=== PATIENT | female | born 1930 | race Caucasian/White ===

== ENCOUNTER 2017-03-09 15:59 | Inpatient (IN) | payer MEDICARE, OTHER ==
--- NOTE | ~2017-03-09 | CR72 ---
[facility] A Service of [facility] & [facility] RADIOLOGY TEXT RESULTS PATIENT: WILI CABRERA LOCATION: [facility] [id number] : 30 UNIT #: [id number] AGE: [address]: Brenton Martinez MD SEX: F ORDER DR: [id number] [facility] [address] [place], [place] [address] [id number] MR#: [id number] Acc #: [id number] NAME: WILI CABRERA : 1930 SEX: F STUDY DATE/TIME: 03/09/2017 18:28 UNIT: [facility] ROOM: STUDY DESCRIPTION: CR Chest Single View Portable Attending Physician: Filippo Oh M.D. Referring Physician: Jv Martin M.D. Ordering Physician: Ed Alexi Yañez M.D. Primary Care Physician: Manny Gloria M.D. MEDICAL IMAGING REPORT This report is preliminary unless electronic signature is present EXAM Portable chest. HISTORY Shortness of breath and cough for the past week. TECHNIQUE Single view of the chest was obtained and compared with 06/30/2015. FINDINGS The heart and mediastinum are stable with a tortuous aorta noted. The lungs are clear with no new infiltrates seen since the previous exam. Vascular markings are normal. IMPRESSION Postop open-heart with a tortuous aorta. No active disease. Dictated by... José Miguel Lorenzo M.D. THIS IS AN ELECTRONICALLY VERIFIED REPORT José Miguel Lorenzo M.D. at 03/09/2017 10:20 PM STEPHAN/bernarda TD: 03/09/2017 19:08 JOB #: [id number] MEDICAL IMAGING REPORT Page 1 of 1 COPY
--- NOTE | ~2017-03-09 | DS ---
Unit #: [id number] #: [id number] Patient: WILI CABRERA [id number] [facility]. [address] [place], [place] [address] [id number] I MR#: [id number] NAME: WILI CABRERA. ROOM: 567 Age: 86 Sex: F Admission Date: 03/11/2017 : 1930 Discharge Date: 03/16/2017 Attending Physician: Brenton Martinez M.D. Primary Care Physician: Manny Gloria M.D. DISCHARGE SUMMARY DISCHARGE DIAGNOSES 1. Diastolic congestive heart failure. Left ventricular ejection fraction 40%-45%, per 2-echo on 03/10/2017. Also shows moderately dilated left atrium, bioprosthetic aortic valve with a peak gradient of 15 mmHg and a mean gradient of 7 mmHg, mild MR, mild to moderate TR, RVSP 31 mmHg. No evidence of pericardial effusion. 2. Status post aortic valve replacement for aortic regurgitation in 2006. 3. Hyperlipidemia. 4. Postural hypotension on a background of hypertension. DISCHARGE MEDICATIONS 1. Gabapentin 300 mg p.o. t.i.d. 2. Effexor 75 mg p.o. daily. 3. Simvastatin 40 mg p.o. daily. 4. Fish oil 1000 mg soft gel p.o. daily. 5. Carboxymethylcellulose TheraTears two drops both eyes b.i.d. 6. Multivitamin 1 p.o. daily. 7. Melatonin 3 mg p.o. at nighttime p.r.n. sleep. 8. Aspirin 81 mg daily. 9. Lansoprazole 30 mg p.o. daily. 10. Potassium chloride 20 mEq p.o. daily. 11. Vitamin D 1000 units p.o. daily. Please note the patient's atenolol 25 mg p.o. at nighttime, HCTZ, Plendil and Diovan have been discontinued secondary to postural hypotension. HOSPITAL COURSE This is an 86-year-old female who is well known to Dr. Leslie with a history of aortic insufficiency, status post tissue aortic valve replacement in 2006. She had undergone cardiac catheterization in 2005, which showed nonobstructive coronary artery disease. The patient presented to the emergency room with complaints of shortness of breath both at rest as well as on exertion. She also had substernal burning chest pain that was occurring with activity, however, had no radiation to the neck, arm or jaw. She denied any PND, orthopnea or leg edema. In the emergency room her BNP was found to be 822. EKG showed no acute ischemic changes. Troponins have been negative. The patient was treated for acute onset diastolic congestive heart failure. Two-dimensional echocardiogram was performed and she was also given IV diuretics. The patient was taken for cardiac catheterization per Dr. Martinez on 03/13/2017, which showed normal coronary arteries. Two-dimensional echocardiogram was performed during this hospitalization, which showed left ventricular ejection fraction of 40%-45%, mild concentric LVH, moderate dilated left atrium, Unit #: [id number] #: [id number] Patient: DEBORAHWILI J bioprosthetic aortic valve with a peak gradient of 15 mmHg and a mean gradient of 7 mmHg, mild mitral regurgitation, mild to moderate tricuspid regurgitation, RVSP 31 mmHg. There was no evidence of any pericardial effusion. During the hospitalization the patient was found to have some postural hypotension. Therefore, her medications were adjusted. She was continued on an 1800 mL fluid restriction as well as a low-sodium diet. Her cardiac rhythm has remained stable throughout the hospitalization. She has had some episodes of bradycardia, asymptomatic, but no high grade AV block or junctional rhythm. No syncopal episodes. The patient denies any complaints of chest pain or shortness of breath. At present her cardiac rhythm is stable. She appears euvolemic. There is no evidence of congestive heart failure on examination. It is felt she is stable for discharge today. CONSULTANTS None. DIAGNOSTIC DATA LABORATORY: Glucose 99, creatinine 1.3, potassium 4.1, last hemoglobin 14.0, hematocrit 41.9, white blood cell count 8.3, platelet count 188. CARDIOVASCULAR: On telemetry the patient is bradycardic in the upper 40s to low 50s. Her atenolol has been discontinued. PHYSICAL EXAMINATION VITALS: Temperature 98.7, respiratory rate 18, pulse 50, blood pressure 124/62, BMI 28. GENERAL: This is a pleasant 86-year-old elderly white female in no acute distress. NECK: Trachea midline. No thyromegaly or lymphadenopathy. No jugular venous distension. HEART: S1 and S2. Heart sounds are normal. Normal valve sounds. No rub or click. Regular rate and rhythm. CHEST: Clear to auscultation. No rales, rhonchi or wheezes. ABDOMEN: Soft, nontender and nondistended with bowel sounds present. EXTREMITIES: No leg edema. Pulses are palpable. NEUROLOGIC: She is awake, alert and oriented. She follows commands. Moves all extremities appropriately. DISCHARGE CONDITION The patient has been seen and evaluated by Dr. Saez today. She is felt stable for discharge home today. She does have some bradycardia on telemetry, but no evidence of high grade AV block or junctional rhythm. She is asymptomatic with a heart rate running in the upper 40s to low 50s. Her atenolol has been discontinued. She has been ambulating without any symptoms. She denies any complaints of chest pain or shortness of breath. She appears euvolemic. Her cardiac catheterization showed normal coronaries with a clinically normal functioning aortic valve. The patient did have some evidence of postural hypotension during this admission, which has since resolved and her medications have been decreased and adjusted. At present the patient feels fine. She does not complain of any dizziness or lightheadedness and is ambulating again without difficulty. FOLLOWUP Unit #: [id number] #: [id number] Patient: WILI CABREAR 1. She will need to follow up with her primary care physician in one to two weeks. 2. I will write for home health to see the patient at discharge for physical therapy as she does need some assistance with ambulation with a rolling walker. 3. The patient should follow up with her normal immigration lawyer, Dr. Leslie, upon discharge. Dictated by... Chela DennisonPSilvioRSparkle for Valerie Sommer/gz TD: 03/18/2017 09:48 JOB #: [id number] DISCHARGE SUMMARY Page 1 of 1 X Aleksandra Gracia APRN X DISCHARGE SUMMARY
--- NOTE | ~2017-03-09 | EKG ---
PATIENT: WIIL CABRERA UNIT #: [id number] Ventricular Rate: 42 BPM Atrial Rate: 42 BPM P-R Interval: 148 ms QRS Duration: 90 ms Q-T Interval: 474 ms QTC Calculation(Bezet): 395 ms P [place]: 18 degrees Calculated R [place]: -13 degrees Calculated T Addison: 54 degrees Diagnosis Line: Marked sinus bradycardia Diagnosis Line: Normal ECG Diagnosis Line: When compared with ECG of 09-MAR-2017 14:02, Diagnosis Line: Premature ventricular complexes are no longer Diagnosis Line: Present Diagnosis Line: Premature atrial complexes are no longer Present Diagnosis Line: Confirmed by TESSIE SCHMITT MD ([id number]) on 03/12/2017 Diagnosis Line: 10:48:25 PM INTERPRETING MD: KESHIA PASTOR
--- NOTE | ~2017-03-09 | HP ---
Unit #: [id number] #: [id number] Patient: WILI CABRERA [id number] [address] [place], [place] [address] [id number] I MR#: [id number] NAME: WILI CABRERA. ROOM: 201 Age: 86 Sex: F Admission Date: 03/09/2017 : 1930 Attending Physician: Brenton Martinez M.D. Primary Care Physician: Manny Gloria M.D. HISTORY AND PHYSICAL HISTORY OF PRESENT ILLNESS This is an 86-year-old white female who is known to Dr. Leslie that has a history of aortic insufficiency where she underwent tissue aortic valve replacement in November 2006. In 2005 she had a cardiac catheterization per their previous records that showed mild nonobstructive coronary artery disease. She is known to have hypertension and hyperlipidemia. The patient presents to the emergency room with a complaint of shortness of breath. She states she got a cortisone injection on Monday. On Monday she began to have shortness of breath at rest as well as on exertion. She has occasional substernal burning chest pain that is nonradiating to the neck, arm or jaw, that mostly occurs with activity. She denied paroxysmal nocturnal dyspnea, orthopnea or leg edema. She did notice an increase in her abdominal girth. She called her primary care physician and was advised to come to the emergency room for evaluation. In the emergency room BNP 822. Her EKG showed no acute ischemic changes. Troponin negative. PAST MEDICAL HISTORY 1. Tissue aortic valve replacement 12/12/2006. 2. Cardiac catheterization in 2005 according to previous dictations from [facility] with mild nonobstructive coronary artery disease. No other details available. 3. Two-D echocardiogram 03/05/2011 shows an ejection fraction equal to or greater than 55% with mild tricuspid regurgitation. Prosthetic aortic valve not well visualized with normal gradients and mild tricuspid regurgitation. 4. Hypertension. 5. Hyperlipidemia. 6. Gastroesophageal reflux disease. 7. Degenerative joint disease. 8. Lifelong nonsmoker. PAST SURGICAL HISTORY 1. Cholecystectomy. 2. Hysterectomy. 3. Right rotator cuff repair. 4. section x3. 5. Aortic valve replacement. 6. Cataract extraction. SOCIAL HISTORY Unit #: [id number] #: [id number] Patient: WILI CABRERA The patient lives at home alone. She has never smoked. She denies illicit drug and alcohol use. FAMILY HISTORY Negative for coronary artery disease. ALLERGIES Hydrocodone. HOME MEDICATIONS 1. Neurontin 300 mg t.i.d. 2. Lansoprazole 30 mg daily. 3. Plendil 5 mg daily. 4. Diovan 160 mg daily. 5. Aspirin 81 mg daily. 6. Vitamin D3 1000 units daily. 7. Calcium 600 mg daily. 8. Multivitamin one tablet daily. 9. Fish oil 1000 mg daily. 10. TheraTears two drops both eyes b.i.d. 11. Effexor 75 mg daily. 12. Simvastatin 40 mg daily. 13. Atenolol 25 mg q.h.s. 14. Melatonin 3 mg q.h.s. REVIEW OF SYSTEMS CONSTITUTIONAL: Negative for fever or chills. Reports weakness. No weight gain or weight loss. HEENT: No headache, hearing or visual changes or difficulty with swallowing. No dizziness. CARDIOVASCULAR: Has chest discomfort described in the HPI. Has occasional palpitations. No paroxysmal nocturnal dyspnea or orthopnea. Denies syncope or near syncope. RESPIRATORY: Positive for dyspnea at rest, worse on exertion. Has occasional nonproductive cough. No hemoptysis. GASTROINTESTINAL: No abdominal pain, nausea or vomiting. No constipation or melena. Noticed an increase in her abdominal girth. EXTREMITIES: Negative for lower extremity edema. PHYSICAL EXAMINATION VITAL SIGNS: Blood pressure 129/75, heart rate 52, temperature 97.5, BMI is 28. GENERAL: This is a very pleasant, 86-year-old, rzpvs-my-jwltaul, elderly white female who is in no acute distress. NEUROLOGICAL: She is awake, alert and oriented. There are no focal weaknesses NECK: Trachea is midline. No thyromegaly or lymphadenopathy. No jugular venous distention. HEART: S1, S2. Heart sounds are normal with valves sounds normal. No rubs or clicks. Regular rate and rhythm. CHEST: Chest is clear to auscultation without rales, rhonchi or wheezes. ABDOMEN: Soft, nontender, with bowel sounds present. EXTREMITIES: Without leg edema. SKIN: Warm and dry. DIAGNOSTIC STUDIES LABORATORY: Glucose 149, BUN 31, creatinine 1.0, sodium 136, potassium 3.6, magnesium 2.0, BNP 822, cholesterol 255, triglycerides 233, LDL of Unit #: [id number] #: [id number] Patient: WILI CABRERA J 172, HDL 36, TSH 1.39, white count 7.5, hemoglobin 12.9, hematocrit 37.8, platelet count is 151. IMAGING: Chest x-ray shows no active disease. CARDIOVASCULAR: EKG sinus bradycardia with a rate of 57 beats per minute with premature ventricular complexes. There is nonspecific ST-wave abnormality. IMPRESSION 1. Acute new onset probable diastolic heart failure. 2. Status post aortic valve replacement for aortic regurgitation in 2006. 3. Hyperlipidemia, uncontrolled. 4. Rule out coronary artery disease 5. Rule out aortic valve malfunction. 6. Hypertension. PLAN 1. The patient has symptomatically improved with IV furosemide. Will start the patient on daily diuretic. 2. Continue fluid and sodium restriction. 3. Obtain 2D echocardiogram to reevaluate left ventricular systolic function and to evaluate the aortic valve gradient. 4. Recommend the patient undergo left and right cardiac catheterization to evaluate her coronary anatomy and to further evaluate the aortic valve. This has been discussed with the patient including risks and benefits and she is agreeable. 5. Cholesterol, triglycerides and LDL are elevated. Will increase statin to high intensity, high dose statin for control. 6. Start on Lovenox and aspirin. 7. Will also start FREDI inhibitor for afterload reduction. 8. Home dose of hydrochlorothiazide will be discontinues. 9. Cardiac catheterization is scheduled for Monday. Dictated by Omid Navarro A.P.R.N. for Valerie Guo/josh TD: 03/10/2017 18:34 JOB #: [id number] CC: Sebastian Jimenez M.D. HISTORY AND PHYSICAL Page 1 of 1 X Omid Navarro APRN HISTORY AND PHYSICAL
--- NOTE | ~2017-03-09 | EKG ---
PATIENT: WILI CABRERA UNIT #: [id number] Ventricular Rate: 57 BPM Atrial Rate: 57 BPM P-R Interval: 138 ms QRS Duration: 86 ms Q-T Interval: 414 ms QTC Calculation(Bezet): 402 ms P [place]: 61 degrees Calculated T [place]: 60 degrees Diagnosis Line: Sinus bradycardia with occasional Premature Diagnosis Line: ventricular complexes and Premature atrial Diagnosis Line: complexes Diagnosis Line: Nonspecific ST abnormality Diagnosis Line: Abnormal ECG Diagnosis Line: When compared with ECG of 03-AUG-2014 10:48, Diagnosis Line: Premature ventricular complexes are now Present Diagnosis Line: Premature atrial complexes are now Present Diagnosis Line: Nonspecific T wave abnormality no longer evident Diagnosis Line: in Anterior leads Diagnosis Line: QT has shortened Diagnosis Line: Confirmed by ADEOLA BECK MD ([id number]) on Diagnosis Line: 03/10/2017 11:06:52 PM INTERPRETING MD: BRYN
[2017-03-09 14:35] LABS: BASOPHIL% 0.2 % (0-2.5); HEMATOCRIT 37.8 % (35.0-45.0); HEMOGLOBIN 12.9 gm/dL (12.0-16.0); LYMPHOCYTE# 1.1 X10e3 (1.0-3.5); LYMPHOCYTE% 14.6 % (17.0-45.0); MEAN CELL VOLUME 92.9 FL (83-96); MEAN CORPUSCULAR HEMOGLOBIN 31.8 PG (28-34); MEAN CORPUSCULAR HGB CONC 34.2 g/dL (30-36); MEAN PLATELET VOLUME 8.5 FL (6.5-11.5); MONOCYTE# 0.6 X10e3 (0-1.0); MONOCYTE% 7.8 % (3.0-12.0); NEUTROPHIL# 5.8 X10e3 (1.5-7.1); NEUTROPHIL% 77.4 % (40-75); PLATELET COUNT 191 X10e3 (140-420); RED BLOOD COUNT 4.07 X10e (3.90-5.30); RED CELL DISTRIBUTION WIDTH 14.9 % (11.0-15.5); WHITE BLOOD COUNT 7.5 X10e3 (4.0-10.5)
[2017-03-09 14:38] LABS: DIFF IND NO
[2017-03-09 15:10] LABS: ALBUMIN SERUM 3.7 g/dL (3.5-5.0); ALKALINE PHOSPHATASE 47 U/L (32-92); ALT (SGPT) 21 U/L (10-40); AST (SGOT) 25 U/L (10-42); BILIRUBIN,TOTAL 0.6 mg/dL (0.2-2.0); BLOOD UREA NITROGEN 33 mg/dL (9-23); CALCIUM SERUM 9.3 mg/dL (8.4-10.2); CARBON DIOXIDE 23 mmol/L (22-31); CHLORIDE 106 mmol/L (100-111); CREATININE SERUM 1.1 mg/dL (0.6-1.4); GLOM FILT RATE Estimated 45.4 mL/min (>60); GLUCOSE FASTING 94 mg/dL (70-110); POTASSIUM 3.8 mmol/L (3.5-5.1); PROTEIN TOTAL SERUM 6.8 g/dL (6.0-8.3); SODIUM 137 mmol/L (135-145)
[2017-03-09 15:14] LABS: BILIRUBIN, DIRECT <0.1 mg/dL (0.0-0.2); BILIRUBIN,INDIRECT 0.5 mg/dL (0.0-0.9)
[2017-03-09 15:48] LABS: POC - CKMB 1.3 ng/mL (0.0-7.9); POC - TROPONIN <0.05 ng/mL (<=0.05)
[~2017-03-09 15:59] MED LIST: ACETAMINOPHEN PO; ASPIRIN PO; ASPIRIN81 MG PO; ATENOLOL PO; CALCIUM 300 MG PO; CENTRUM SILVER; CERTAGEN PO; CHEWABLE ASPIRI81 MG PO; Calcium PO; DARVOCET-N 1001 TAB PO; DIOVAN PO; DIOVAN160 MG PO; EFFEXOR PO; FAMOTIDINE PO; FISH OIL 1,0001 CAP PO; FISH OIL300 MG PO; GABAPENTIN300 MG PO; HCTZ PO; HYDROCHLOROTHIA25 MG PO; K-DUR20 ME1 PO; LIPITOR PO; MICRO-K PO; MULTI-VITAMIN1 TAB PO; MULTIVITAMIN1 UDCAP PO; NABUMETONE500 M1 PO; NEURONTIN300 MG PO; OYSTER CALCIUM500 MG PO; PAIN RELIEF500 MG PO; PLENDIL PO; PLENDIL5 MG PO; PREDNISONE10 MG PO; PREVACID PO; PRILOSEC PO; SIMVASTATIN40 MG PO; TENORMIN25 MG PO; THERA M PLUS1 UDTA1 PO; THERA TEARS PO; THERA TEARS28 EA OP; THERA TEARS28 EA PO; TYLENOL PM EX-S1 TA4 PO; VENLAFAXINE HCL75 M1 PO; VITAMIN D1000 UNI1 PO; VITAMIN D1000 UNIT PO; ZITHROMAX PO
[2017-03-09 18:39] LABS: POC - CKMB <1.0 ng/mL (0.0-7.9); POC - TROPONIN <0.05 ng/mL (<=0.05)
[2017-03-09] MEDS ORDERED: NEURONTIN300 MG PO (19:28)
[2017-03-09] MEDS ORDERED: LANSOPRAZOLE30 M2 PO (19:29)
[2017-03-09] MEDS ORDERED: PLENDIL5 MG PO (19:30)
[2017-03-09] MEDS ORDERED: DIOVAN160 MG PO (19:31)
[2017-03-09] MEDS ORDERED: BAYER CHEWABLE81 MG PO (19:31)
[2017-03-09] MEDS ORDERED: VITAMIN D-32000 UNI1 PO (19:31)
[2017-03-09] MEDS ORDERED: CALCIUM500 M1 PO (19:32)
[2017-03-09] MEDS ORDERED: MULTI VITAMIN1 EACH PO (19:33)
[2017-03-09] MEDS ORDERED: FISH OIL 1,0001 EAC3 PO (19:34)
[2017-03-09] MEDS ORDERED: THERA TEARS1 EACH OU (19:35)
[2017-03-09] MEDS ORDERED: SIMVASTATIN40 MG PO (19:35)
[2017-03-09] MEDS ORDERED: EFFEXOR75 M2 PO (19:35)
[2017-03-09] MEDS ORDERED: MELATONIN3 M3 PO (19:36)
[2017-03-09] MEDS ORDERED: ATENOLOL25 MG PO (19:36)
[2017-03-10] MEDS ORDERED: HYDROCHLOROTHIA25 MG PO (03:06)
[2017-03-10] MEDS ORDERED: K-DUR20 ME2 PO (03:08)
[2017-03-10 04:05] LABS: URINE SOURCE CLEAN CATCH
[2017-03-10 04:13] LABS: URINE APPEARANCE CLEAR; URINE BILIRUBIN NEG (NEG); URINE BLOOD NEG (NEG); URINE COLOR YELLOW; URINE GLUCOSE NEG (NEG); URINE KETONE NEG (NEG); URINE LEUKOCYTE ESTERASE TRACE (NEG); URINE NITRATE NEG (NEG); URINE PH 5.5 (5-8); URINE PROTEIN NEG (NEG); URINE SPECIFIC GRAVITY 1.009 (1.003-1.035); URINE UROBILINOGEN 0.2 MG/DL (NEG)
[2017-03-10 04:16] LABS: URBCS1 AUWI 0-2 /[HPF] (0-2); URINE BACTERIA AUWI NEG (NEGATIVE); URINE SQUAMOUS EPITHELIAL CELL NONE SEEN /[HPF]; UWBCS1 AUWI 0-2 (0-5)
[2017-03-10 04:17] LABS: CULTURE INDICATED? NO
[2017-03-10 10:11] LABS: CALCIUM SERUM 9.6 mg/dL (8.4-10.2); POTASSIUM 3.6 mmol/L (3.5-5.1)
[2017-03-12 06:40] LABS: HEMATOCRIT 41.6 % (35.0-45.0); MEAN CELL VOLUME 92.2 FL (83-96); MEAN CORPUSCULAR HGB CONC 33.6 g/dL (30-36); MEAN PLATELET VOLUME 8.9 FL (6.5-11.5); RED BLOOD COUNT 4.52 X10e (3.90-5.30); RED CELL DISTRIBUTION WIDTH 14.5 % (11.0-15.5); WHITE BLOOD COUNT 7.5 X10e3 (4.0-10.5)
[2017-03-12 07:02] LABS: INR 1.1; PARTIAL THROMBOPLASTIN TIME 33.7 SECONDS (23.5-31.3); PROTHROMBIN TIME (PATIENT) 11.5 SECONDS (9.6-11.5)
[2017-03-12 07:18] LABS: ALBUMIN SERUM 3.5 g/dL (3.5-5.0); BUN/CREATININE RATIO 38.12; CALCIUM SERUM 8.8 mg/dL (8.4-10.2); CREATININE SERUM 1.6 mg/dL (0.6-1.4); GLOM FILT RATE Estimated 28.9 mL/min (>60); POTASSIUM 3.3 mmol/L (3.5-5.1); PROTEIN TOTAL SERUM 6.4 g/dL (6.0-8.3)
[2017-03-13 06:22] LABS: HEMATOCRIT 41.9 % (35.0-45.0); MEAN CELL VOLUME 93.7 FL (83-96); MEAN CORPUSCULAR HEMOGLOBIN 31.2 PG (28-34); MEAN CORPUSCULAR HGB CONC 33.3 g/dL (30-36); MEAN PLATELET VOLUME 8.7 FL (6.5-11.5); RED BLOOD COUNT 4.47 X10e (3.90-5.30); RED CELL DISTRIBUTION WIDTH 14.6 % (11.0-15.5); WHITE BLOOD COUNT 8.3 X10e3 (4.0-10.5)
[2017-03-13 07:13] LABS: CALCIUM SERUM 8.9 mg/dL (8.4-10.2); CREATININE SERUM 1.8 mg/dL (0.6-1.4); POTASSIUM 4.1 mmol/L (3.5-5.1)
[2017-03-14 07:00] LABS: CREATININE SERUM 1.3 mg/dL (0.6-1.4); GLOM FILT RATE Estimated 37.1 mL/min (>60)
== END 2017-03-16 14:19 | disposition home health service (06) | DRG 287 ==
LOC: CED 15:59 → CEDOF 19:30 → C2A 03-11 09:00 → C5C 03-13 15:55
PROVIDERS: Emergency Medicine; Internal Medicine Cardiovascular Disease
PROC: B24BYZZ Ultrasonography of Heart with Aorta using Other Contrast (ICD-10-PCS; 2017-03-11)
PROC: 4A023N8 Measurement of Cardiac Sampling and Pressure, Bilateral, Percutaneous Approach (ICD-10-PCS; principal; 2017-03-13)
PROC: B310YZZ Fluoroscopy of Thoracic Aorta using Other Contrast (ICD-10-PCS; 2017-03-13)
PROC: B211YZZ Fluoroscopy of Multiple Coronary Arteries using Other Contrast (ICD-10-PCS; 2017-03-13)
DX: I11.0 Hypertensive heart disease with heart failure (principal); N17.9 Acute kidney failure, unspecified; Z95.2 Presence of prosthetic heart valve; E78.5 Hyperlipidemia, unspecified; I50.41 Acute combined systolic (congestive) and diastolic (congestive) heart failure; I95.2 Hypotension due to drugs; I08.1 Rheumatic disorders of both mitral and tricuspid valves
CPT/HCPCS: 36415; 71010; 80048; 80053; 80061; 80076; 81003; 82553; 82565; 82810; 83036; 83735; 83880; 84443; 84484; 85025; 85027; 85347; 85610; 85730; 93005; 93306; 97116; 97163; 97167; 97535; 99285; C1769; C1887; C1894; G8978-GP; G8979-GP; G8987-GO; G8988-GO; J0461; J1644; J1650; J1940; J2250; J2270; J2405; J3010